=== PATIENT | male | born 1995 | race Two or more races ===

== ENCOUNTER 2020-04-22 02:45 | Emergency (ER) | payer OTHER, MEDICAID ==
[~2020-04-22] VITALS: Ht 180.3 cm; Wt 122.5 kg
[2020-04-22 03:04] VITALS: BP 131/81
== END 2020-04-22 06:56 | disposition home or self-care (01) ==
LOC: ER 02:51
DX: U07.1 COVID-19 (principal)
CPT/HCPCS: 36415; 71045; 87426

== ENCOUNTER 2022-06-25 22:23 | Emergency (ER) | payer MEDICAID, OTHER ==
[~2022-06-25] VITALS: Ht 182.9 cm; Wt 118.0 kg
[2022-06-25 23:04] LABS: Urine Bacteria NONE SEEN /hpf (None Seen); Urine Blood Negative /uL (Negative); Urine Specific Gravity 1.022 (1.001-1.035); Urine WBC 6 /hpf (0 - 3)
[2022-06-25 23:06] VITALS: BP 139/82
[2022-06-25 23:20] LABS: Basophils # (auto) 0.1 10 ^3/uL (0-0.2); Basophils % (auto) 0.7 % (0.0-2.0); Eosinophils # (auto) 0.1 10 ^3/uL (0-0.8); Eosinophils % (auto) 1.1 % (0.0-7.0); Hematocrit 42.2 % (41.0-53.0); Hemoglobin 14.6 g/dL (13.5-17.5); Lymphocytes # (auto) 2.6 10 ^3/uL (0.4-5.4); Lymphocytes % (auto) 35.9 % (10.0-50.0); Mean Corpuscular Hemoglobin 31.2 pg (28.0-32.0); Mean Corpuscular Hgb Conc. 34.6 g/dL (32.0-36.0); Mean Corpuscular Volume 90.1 fL (80.0-100.0); Monocytes # (auto) 0.4 10 ^3/uL (0-1.3); Monocytes % (auto) 6.2 % (0.0-12.0); Neutrophils % (auto) 56.1 % (37.0-80.0); Nucleated Red Blood Cells % 0.1 %; Red Blood Cells 4.68 10^6/uL (4.5-5.90); Red Cell Distribution Width 12.9 % (11.8-14.3); White Blood Cell 7.1 10^3/uL (4.4-10.8)
[2022-06-25 23:41] LABS: Albumin 3.7 g/dL (3.4-5.0); Calcium 8.3 mg/dL (8.5-10.1); Potassium 3.9 mmol/L (3.5-5.1)
[2022-06-25 23:45] LABS: BUN/Creatinine Ratio 10.7; Bilirubin, Total 0.5 mg/dL (0.2-1.0); Total Protein 7.3 g/dL (6.4-8.2)
[2022-06-26] MEDS ORDERED: DOXY-286 PO (03:34)
[2022-06-26] MEDS ORDERED: DEX4T PO (03:34)
[2022-06-26] MEDS ORDERED: ALBU108A5 IN (03:35)
== END 2022-06-26 03:36 | disposition home or self-care (01) ==
LOC: ER 22:23
DX: R78.9 Finding of unspecified substance, not normally found in blood (principal); J20.9 Acute bronchitis, unspecified
CPT/HCPCS: 36415; 71045; 80053; 81001; 84484; 85025; 93005